=== PATIENT | male | born 1935 | race African-American/Black ===

== ENCOUNTER 2018-11-06 16:58 | Inpatient (IN) | payer OTHER, BC ==
--- NOTE | 2018-11-06 17:06 | EDPHY ---
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 surgery back surgery x2, hemorrhoidectomy x 2 , prostate cancer currently in remission, recent anemia hospitalization, smoldering myeloma - Social History Smoking Status: Never smoked Constitutional: Initial Vital Signs Temperature (C) 36.6 C 11/06/18 17:26 Heart Rate 75 11/06/18 17:26 Respiratory Rate 16 11/06/18 17:26 Blood Pressure 138/79 H 11/06/18 17:26 O2 Sat (%) 97 11/06/18 17:26 O2 Delivery Mode Room Air Allergies/Adverse Reactions: codeine [Codeine] Allergy (Intermediate, Verified 08/16/16 10:07) "delusional" aspirin [From Percodan] Allergy (Verified 08/16/16 10:07) morphine Allergy (Verified 08/16/16 10:07) oxycodone HCl [From Percodan] Allergy (Verified 08/16/16 10:07) oxycodone terephthalate [From Percodan] Allergy (Verified 08/16/16 10:07) Home Medications: Medication Instructions Recorded Acyclovir [Zovirax 200 mg (*)] 200 mg PO BID 06/22/14 Allopurinol [Allopurinol 100 MG 100 mg PO DAILY 06/22/14 (*)] Furosemide [Lasix 40 MG (*)] 40 mg PO DAILY 06/22/14 Herbals/Supplements -Info Only 1 ea PO DAILY 06/22/14 Hydroxychloroquine Sulfate 400 mg PO DAILY 06/22/14 [Plaquenil 200 mg (*)] Lactulose 30 gm PO TID 06/22/14 Latanoprost 1 drops EACHEYE HS 06/22/14 Warfarin Sodium [Coumadin 4MG (*)] 4 mg PO DAILY16 06/22/14 Polyethylene Glycol 3350 [Miralax 17 gm PO DAILY #30 pkt 06/23/14 17 gm (*)] Losartan Potassium 08/16/16 amLODIPine BESYLATE [Amlodipine 5 mg PO DAILY #30 tablet 10/10/16 Besylate] Medical Decision Making - Diagnostics Imaging Results: Imaging Impressions Abdomen/Pelvis CT 11/06/18 17:20 Impression: 1. Mild to moderate dilatation and thickening of the cecum and ascending colon to the level of hepatic flexure with the cecum position and in the left upper abdomen. 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 2. Interstitial fibrotic changes at the lung bases with early honeycomb pattern. Findings discussed with Norris Foster MD at 19:20 hour, 11/06/2018. Imaging: Discussed imaging studies w/ call center agent Radiologist, I viewed and interpreted images myself ED Course/Re-evaluation: CHIEF COMPLAINT: Abdominal pain HISTORY OF PRESENT ILLNESS: The patient is an 83 y/o male with a history of renal failure, prostate cancer, back surgery, and hemorrhoidectomy complaining of abdominal pain onset at 14:30 , 3 hours ago. This morning he felt normal and was able to exercise without difficulty. After eating lunch he developed some abdominal discomfort and had one episode of vomiting. The pain is currently in his upper abdomen and he is not nauseous. No fever, headache, chest pain, urinary or bowel complaints, numbness, paresthesias. REVIEW OF SYSTEMS: A comprehensive 10 system review of systems is otherwise negative aside from elements mentioned in the history of present illness and medical decision making. PHYSICAL EXAM: HR, BP, O2 Sat, RR. Temp noted General Appearance: Alert, well hydrated, appropriate, and non-toxic appearing. Head: Atraumatic without scalp tenderness or obvious injury Eyes: Pupils equal, round, reactive to light and accommodation, EOMI, no trauma , no injection. Ears: Clear bilaterally, no perforation, normal landmarks Nose: Atraumatic, no rhinorrhea, clear. Throat: There is no erythema or exudates, no lesions, normal tonsils, mucus membranes moist. Neck: Supple, 2+ carotid upstroke, nontender, no lymphadenopathy. Respiratory: No retractions, no distress, no wheezes, and no accessory muscle use. Lungs are clear to auscultation bilaterally. Cardiovascular: Regular rate and rhythm, no murmurs, rubs, or gallops. Bilateral carotid, radial, dorsalis pedis, and posterior tibial pulses intact. Good capillary refill all extremities. Gastrointestinal: Left upper quadrant and epigastric tenderness to palpation. Abdomen is soft, non-distended, no masses, no rebound, no guarding, no peritoneal signs. Musculoskeletal: Normal active ROM of all extremities, atraumatic. Neurological: Alert, appropriate, and interactive. The patient has normal DTRs and non-focal cranial nerves, motor, sensory, and cerebellar exam. Skin: No rashes, good turgor, no nodules on palpation. 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 MEDICAL DECISION MAKING: The patient is an 83 y/o male with a history of renal failure, prostate cancer, back surgery, and hemorrhoidectomy presenting with abdominal pain and one episode of vomiting onset at 14:30, 3 hours ago. On exam he has left upper quadrant and epigastric tenderness to palpation. Labs ordered; 1L IV NS administered. 1739: I reviewed patient's laboratory findings; he is anemic and dehydrated. Imaging studies still pending. 1914: I spoke with Dr. 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 1917: I consulted with Dr. Hairston, regarding this patient and his imaging findings. Dr. Hairston will consult on this patient during his admission. 1924: I consulted with the hospitalist service; Dr. Blue accepts admission of this patient. Patient is still in pain; 1mg IV Dilaudid administered. 1954: I consulted with Dr. Hairston who is now in the emergency department. He will talk with the patient and his family regarding possible surgery. Dr. Hairston will take this patient to the OR for the cecal bascule. - Data Points Laboratory Results: Laboratory Results 11/06/18 17:25 11/06/18 17:25 11/06/18 11/06/18 11/06/18 17:42 17:25 17:25 WBC RBC Hgb POC Hgb 7.1 gm/dL L gm/dL (13.7-17.5) Hct POC Hct 21 % L % (40-51) MCV MCH MCHC RDW Plt Count MPV Neut % (Auto) Lymph % (Auto) [place] % (Auto) Eos % (Auto) Baso % (Auto) Nucleat RBC Rel Count Absolute Neuts (auto) Absolute Lymphs (auto) Absolute Monos (auto) Absolute Eos (auto) Absolute Basos (auto) Absolute Nucleated RBC Immature Gran % Immature Gran # PT 13.5 SEC SEC (12.0-15.0) INR 1.01 (0.83-1.16) APTT 35.6 SEC SEC (23.0-38.0) POC Sodium 137 mEq/L mEq/L (135-145) Sodium 135 mEq/L mEq/L (135-145) POC Potassium 3.4 mEq/L mEq/L (3.3-5.0) Potassium 3.6 mEq/L mEq/L (3.5-5.2) POC Chloride 100 mEq/L mEq/L (97-110) Chloride 103 mEq/L mEq/L (97-110) Carbon Dioxide 22 mEq/l mEq/l (22-31) Anion Gap 10 mEq/L mEq/L (6-14) POC BUN 64 mg/dL H mg/dL (7-23) BUN 71 mg/dL H mg/dL (7-23) Creatinine 3.1 mg/dL H mg/dL (0.7-1.3) POC Creatinine 3.5 mg/dL H mg/dL (0.7-1.3) Estimated GFR 19 Glucose 115 mg/dL H mg/dL (70-100) POC Glucose 112 mg/dL H mg/dL (70-100) Calcium 8.8 mg/dL mg/dL (8.5-10.4) Total Bilirubin 0.7 mg/dL mg/dL (0.1-1.4) Conjugated Bilirubin 0.5 mg/dL mg/dL (0.0-0.5) Unconjugated Bilirubin 0.2 mg/dL mg/dL (0.0-1.1) AST 18 IU/L IU/L (17-59) ALT 17 IU/L L IU/L (21-72) Alkaline Phosphatase 62 IU/L IU/L (38-126) Total Protein 6.6 g/dL g/dL (6.3-8.2) Albumin 3.6 g/dL g/dL (3.5-5.0) Lipase 201 IU/L IU/L (23-300) 11/06/18 17:25 WBC 3.73 10^3/uL L 10^3/uL (3.80-9.50) RBC 2.81 10^6/uL L 10^6/uL (4.40-6.38) Hgb 10.4 g/dL L g/dL (13.7-17.5) POC Hgb Hct 29.6 % L % (40.0-51.0) POC Hct MCV 105.3 fL H fL (81.5-99.8) MCH 37.0 pg H pg (27.9-34.1) MCHC 35.1 g/dL g/dL (32.4-36.7) RDW 16.5 % H % (11.5-15.2) Plt Count 164 10^3/uL 10^3/uL (150-400) MPV 10.2 fL fL (8.7-11.7) Neut % (Auto) 66.8 % % (39.3-74.2) Lymph % (Auto) 24.9 % % (15.0-45.0) [place] % (Auto) 6.4 % % (4.5-13.0) Eos % (Auto) 1.1 % % (0.6-7.6) Baso % (Auto) 0.5 % % (0.3-1.7) Nucleat RBC Rel Count 0.5 % H % (0.0-0.2) Absolute Neuts (auto) 2.49 10^3/uL 10^3/uL (1.70-6.50) Absolute Lymphs (auto) 0.93 10^3/uL L 10^3/uL (1.00-3.00) Absolute Monos (auto) 0.24 10^3/uL L 10^3/uL (0.30-0.80) Absolute Eos (auto) 0.04 10^3/uL 10^3/uL (0.03-0.40) Absolute Basos (auto) 0.02 10^3/uL 10^3/uL (0.02-0.10) Absolute Nucleated RBC 0.02 10^3/uL H 10^3/uL (0-0.01) Immature Gran % 0.3 % % (0.0-1.1) Immature Gran # 0.01 10^3/uL 10^3/uL (0.00-0.10) PT INR APTT POC Sodium Sodium POC Potassium Potassium POC Chloride Chloride Carbon Dioxide Anion Gap POC BUN BUN Creatinine POC Creatinine Estimated GFR Glucose POC Glucose Calcium Total Bilirubin Conjugated Bilirubin Unconjugated Bilirubin AST ALT Alkaline Phosphatase Total Protein Albumin Lipase Medications Given: Discontinued Medications Hydromorphone HCl (Dilaudid) 1 mg IVP EDNOW ONE Stop: 11/06/18 19:28 Last Admin: 11/06/18 19:31 Dose: 1 mg Sodium Chloride (Ns) 1,000 mls @ 0 mls/hr IV EDNOW ONE; Wide Open PRN Reason: Protocol Stop: 11/06/18 17:18 Last Admin: 11/06/18 17:44 Dose: 1,000 mls Point of Care Test Results: Chemistry 11/06/18 17:42 POC Sodium 137 mEq/L mEq/L (135-145) POC Potassium 3.4 mEq/L mEq/L (3.3-5.0) POC Chloride 100 mEq/L mEq/L (97-110) POC BUN 64 mg/dL H mg/dL (7-23) POC Creatinine 3.5 mg/dL H mg/dL (0.7-1.3) POC Glucose 112 mg/dL H mg/dL (70-100) ISTAT H&H 11/06/18 17:42 POC Hgb 7.1 gm/dL L gm/dL (13.7-17.5) POC Hct 21 % L % (40-51) Departure - Departure Disposition: To OP Cath/Surgery Clinical Impression: Cecal bascule, Dehydration, Renal insufficiency Condition: Fair Report Scribed for: Norris Foster Report Scribed by: Jesica Rich Date of Report: 11/06/18 Time of Report: 17:07
[2018-11-06] MEDS ORDERED: NS 1,000 ML IV ONE (17:17)
[2018-11-06 17:36] LABS: PLATELET COUNT 164 10^3/uL (150-400)
[2018-11-06 17:45] LABS: INR 1.01 (0.83-1.16); PROTIME(PATIENT) 13.5 SEC (12.0-15.0)
[2018-11-06] MEDS ORDERED: HYDROmorphONE/DILAUDID 2 MG/ML INJ IVP ONE (19:27)
[2018-11-06] MEDS ORDERED: ACETAMINOPHEN 325 MG TAB PO PRN (20:26)
[2018-11-06] MEDS ORDERED: ONDANSETRON 4 MG/2 ML VIAL IVP PRN ×2 (20:26→23:08)
[2018-11-06] MEDS ORDERED: PROMETHAZINE HCL 25 MG/ML INJ IVP PRN ×2 (20:26→23:08)
[2018-11-06] MEDS ORDERED: ONDANSETRON DISINTEGRATING 4 MG TAB PO PRN (20:26)
--- NOTE | 2018-11-06 20:39 | PDCONSULT ---
Neurology Tech Note: Chief complaint: Abdominal pain Consult the request of Dr. Norris Foster emergency room. History of present illness: This is an 83-year-old gentleman with a history of p-ANCA vasculitis, chronic renal insufficiency, prostate cancer, hypertension who presents to the hospital with acute exacerbation of chronic abdominal pain. Patient has had a smoldering history of failure to thrive not eating very much over the last several months. He did have a bowel movement this morning. Denies any changes in his overall bowel habits until today. He exercises on a regular basis but has limited walking. Denies exertional dyspnea. 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 Home meds: Acyclovir [Zovirax 200 mg (*)] 200 mg PO BID 06/22/14 [Last Taken 06/22/14] Allopurinol [Allopurinol 100 MG (*)] 100 mg PO DAILY 06/22/14 [Last Taken ] Furosemide [Lasix 40 MG (*)] 40 mg PO DAILY 06/22/14 [Last Taken 06/22/14] Herbals/Supplements -Info Only 1 ea PO DAILY 06/22/14 [Last Taken 06/22/14] Hydroxychloroquine Sulfate [Plaquenil 200 mg (*)] 400 mg PO DAILY 06/22/14 [ Last Taken 06/22/14] Lactulose 30 gm PO TID 06/22/14 [Last Taken 06/22/14] Latanoprost 1 drops EACHEYE HS 06/22/14 [Last Taken 06/21/14] Warfarin Sodium [Coumadin 4MG (*)] 4 mg PO DAILY16 06/22/14 [Last Taken 06/21/14 ] Losartan Potassium 08/16/16 [Last Taken Unknown] Allergy/AdvReac Type Severity Reaction Status Date / Time codeine [Codeine] Allergy Intermediate "delusional Verified 08/16/16 10:07 " aspirin [From Percodan] Allergy Verified 08/16/16 10:07 morphine Allergy Verified 08/16/16 10:07 oxycodone HCl [From Percodan] Allergy Verified 08/16/16 10:07 oxycodone terephthalate Allergy Verified 08/16/16 10:07 [From Percodan] Temp Pulse Resp BP Pulse Ox 36.8 C 57 L 18 131/73 H 97 11/06/18 18:00 11/06/18 20:46 11/06/18 20:46 11/06/18 20:46 11/06/18 20:46 O2 (L/minute) 1 Alert oriented to person place and time Anicteric Oropharynx moist without lesions No JVD Regular rate and rhythm Clear to auscultation bilaterally. Right Port-A-Cath accessed site is clean dry intact Abdomen softly distended tender right upper quadrant with some tympany. 2+ over 2+ radial and popliteal pulses. Bilateral 2+ posterior tibial. 2+ dorsalis pedis left, 1+ dorsalis pedis right No skin rashes No adenopathy Normal affect appropriate behavior CT scan personally reviewed with the patient consistent with cecal bascule/ cecal volvulus 11/06/18 17:25 11/06/18 17:25 Total Bilirubin 0.7 mg/dL (0.1-1.4) 11/06/18 17:25 Conjugated Bilirubin 0.5 mg/dL (0.0-0.5) 11/06/18 17:25 Unconjugated Bilirubin 0.2 mg/dL (0.0-1.1) 11/06/18 17:25 AST 18 IU/L (17-59) 11/06/18 17:25 ALT 17 IU/L (21-72) L 11/06/18 17:25 Imaging Impressions Abdomen/Pelvis CT 11/06/18 17:20 Impression: 1. Mild to moderate dilatation and thickening of the cecum and ascending colon to the level of hepatic flexure with the cecum position and in the left upper abdomen. 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 2. Interstitial fibrotic changes at the lung bases with early honeycomb pattern. Findings discussed with Norris Foster MD at 19:20 hour, 11/06/2018. 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 The risks benefits and alternatives to surgery have been outlined with the patient in his life partner. The risks include bleeding, infection, anastomotic breakdown and need for further surgery. There increased risk due to his debility renal failure in use of immunosuppression on a chronic basis. He has been seen by Dr. Shane Blue from Medicine who has boilermaker's assistant in taking care of his chronic medical problems with EKG prior to surgery is congruous with previous EKG 4 years ago. Preoperative Ancef and Flagyl will be given. All questions were addressed. Anticipated 3-5 day hospital stay
[2018-11-06] MEDS ORDERED: BUPIVACAINE 0.5% 30 ML SDV ONE (20:56)
[2018-11-06] MEDS ORDERED: BACITRACIN 50,000 UNITS/10 ML SYR IRR ONE (20:57)
[2018-11-06] MEDS ORDERED: POLYMYXIN B SULFATE 500,000 UNIT/10 ML SYR IRR ONE (20:57)
--- NOTE | 2018-11-06 21:24 | GHP ---
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 intake. He has not had fever or chills. Pain got worse at about 2:30 in the afternoon, developed some abdominal discomfort after lunch. He was able to exercise moderately with some weights this morning without difficulty. He had an episode of vomiting. He describes the pain as in his upper abdomen. No fever, chills. I have seen the patient in conjunction with Dr. Con Hairston of General Surgery. REVIEW OF SYSTEMS: Complete 10-point review of systems conducted, negative except as noted in the HPI. PAST MEDICAL HISTORY: 1. [id number] pauci-immune RPGN. He was on Cytoxan therapy for a while , and now he takes azathioprine. He is followed by Dr. Derrek Aguayo, [facility]. Baseline creatinine is 3. 2. Anemia of chronic kidney disease. 3. Smoldering myeloma. 4. Lower extremity DVT in May 2014. No longer on warfarin. 5. Hypertension. 6. History of prostate cancer. 7. Rheumatoid arthritis, on prednisone and Plaquenil. 8. History of right subclavian port. SOCIAL HISTORY: He has had a partner for 16 years. No alcohol, tobacco. 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 FAMILY HISTORY: Notable for hypertension and multiple myeloma. ALLERGIES: Codeine, aspirin, morphine, oxycodone. HOME MEDICATION LIST: Pending at this time. Previous list includes acyclovir, allopurinol, amlodipine, furosemide, hydroxychloroquine, lactulose, latanoprost , losartan, polyethylene glycol. Azathioprine in now part of his medication list as well. PHYSICAL EXAM: VITAL SIGNS: Temp 36.8, blood pressure 133/79, pulse 75, breathing 18 times a minute, 97% on room air. GENERAL: No acute distress. HEENT: Sclerae anicteric. Oropharynx clear. Mucous membranes moist. NECK: Supple. No lymphadenopathy or JVD. LUNGS: Clear to auscultation bilaterally. HEART: S1, S2, without murmurs. ABDOMEN: Soft. Bowel sounds are hypoactive to absent. It is mildly distended and tympanic to percussion. LOWER EXTREMITIES: Without edema. Calves nontender. SKIN: Without rash. NEUROLOGIC: Exam is nonfocal. LABS: White count 3.7, hemoglobin 10, hematocrit 29.6, platelets are 164,000. Coags are normal. Sodium 135, potassium 3.6, chloride 103, bicarb 22, BUN 70, with creatinine 3.1, glucose 115. LFTs are normal. CT of the abdomen, images reviewed and interpreted by me show likely cecal volvulus. EKG interpreted by me shows sinus at 74 with borderline left axis deviation, normal intervals, no ST or T-wave changes, unchanged from an EKG in May 2014. I discussed the case with Dr. Norris Foster as well as Dr. Con Hairston. ASSESSMENT AND PLAN: 83-year-old gentleman with volvulus. 1. Preoperative cardiac evaluation: The patient has multiple risk factors for cardiac disease including hypertension and renal disease. He is able to possibly achieve greater than 4 METs. This is urgent surgery without active cardiac condition. He has no history of exertional symptoms, and his EKG is unchanged from a previous baseline. Therefore, he may proceed to surgery without further workup or intervention. We discussed the patient has intermediate risk of cardiac complications. Notably, he had essentially normal echo here in June 2014. 2. Volvulus, to the operating room with Dr. Con Hairston this evening. 3. Pauci-immune glomerulonephritis: I will continue his azathioprine when his medication has been reconciled. 4. Chronic kidney disease: Maintain euvolemia and not restart diuretics until the patient is taking adequate p.o. 5. Prophylaxis: He is high risk given his previous history of deep venous thrombosis. Would start subcu heparin [id number] prophylaxis when cleared from a renal standpoint. DISPOSITION: Inpatient status. PAIN: Will do IV Dilaudid for now. /[id number]/MODL MTDD
[2018-11-06] MEDS ORDERED: PROPOFOL 200 MG/20 ML VIAL ONE (21:33)
[2018-11-06] MEDS ORDERED: fentaNYL 100 MCG/2 ML INJ ONE (21:33)
[2018-11-06] MEDS ORDERED: CISATRACURIUM BESYLATE 20 MG/10 ML VIAL IV ONE (21:35)
[2018-11-06] MEDS ORDERED: SUCCINYLCHOLINE CHLORIDE 200 MG/10 ML SYR IVP ONE (21:37)
[2018-11-06] MEDS ORDERED: DEXAMETHASONE 4 MG/ML VIAL ONE (21:37)
[2018-11-06] MEDS ORDERED: ONDANSETRON 4 MG/2 ML VIAL ONE (21:37)
[2018-11-06] MEDS ORDERED: PHENYLEPHRINE HCL 100 MCG/ML SYR ONE (21:53)
--- NOTE | 2018-11-06 22:00 | PDANEPAE ---
ANE Past Medical History - Cardiovascular History Hx Hypertension: Yes Hx Arrhythmias: Yes Hx Coronary Artery / Peripheral Vascular Disease: No Hx CHF / Valvular Disease: No - Pulmonary History Hx COPD: No Hx Asthma/Reactive Airway Disease: No Hx Oxygen in Use at Home: No Hx Sleep Apnea: No - Endocrine History Hx Diabetes: No Obesity: no - Chronic Pain History Chronic Pain: Yes ANE Review of Systems Review of Systems: ANE Patient History - Allergies Allergies/Adverse Reactions: codeine [Codeine] Allergy (Intermediate, Verified 08/16/16 10:07) "delusional" aspirin [From Percodan] Allergy (Verified 08/16/16 10:07) morphine Allergy (Verified 08/16/16 10:07) oxycodone HCl [From Percodan] Allergy (Verified 08/16/16 10:07) oxycodone terephthalate [From Percodan] Allergy (Verified 08/16/16 10:07) - Home Medications Home medications: home medication list seen and reviewed Home Medications: Acyclovir [Zovirax 200 mg (*)] 200 mg PO BID 06/22/14 [Last Taken 06/22/14] Allopurinol [Allopurinol 100 MG (*)] 100 mg PO DAILY 06/22/14 [Last Taken ] Furosemide [Lasix 40 MG (*)] 40 mg PO DAILY 06/22/14 [Last Taken 06/22/14] Herbals/Supplements -Info Only 1 ea PO DAILY 06/22/14 [Last Taken 06/22/14] Hydroxychloroquine Sulfate [Plaquenil 200 mg (*)] 400 mg PO DAILY 06/22/14 [ Last Taken 06/22/14] Lactulose 30 gm PO TID 06/22/14 [Last Taken 06/22/14] Latanoprost 1 drops EACHEYE HS 06/22/14 [Last Taken 06/21/14] Warfarin Sodium [Coumadin 4MG (*)] 4 mg PO DAILY16 06/22/14 [Last Taken 06/21/14 ] Losartan Potassium 08/16/16 [Last Taken Unknown] - NPO status NPO Since - Liquids (Date): 11/06/18 NPO Since - Liquids (Time): 14:30 NPO Since - Solids (Date): 11/06/18 NPO Since - Solids (Time): 12:30 - Anes Hx Anes Hx: no prior problems - Smoking Hx Smoking Status: Never smoked ANE Labs/Vital Signs - Labs Result Diagrams: 11/06/18 17:25 11/06/18 17:25 - Vital Signs Blood Pressure: 121/69 Heart Rate: 62 Respiratory Rate: 18 O2 Sat (%): 97 Height: 172.72 cm Weight: 69.853 kg ANE Physical Exam - Airway Neck exam: FROM Mallampati Score: Class 3 Mouth exam: normal dental/mouth exam - Pulmonary Pulmonary: no respiratory distress, no rales or rhonchi, clear to auscultation - Cardiovascular Cardiovascular: regular rate and rhythym - ASA Status ASA Status: III, E ANE Anesthesia Plan Anesthesia Plan: general endotracheal anesthesia
[2018-11-06] MEDS ORDERED: LIDOCAINE 2% 5 ML SDV ONE (22:34)
[2018-11-06] MEDS ORDERED: NEOSTIGMINE METHYLSULFATE 5 MG/5 ML SYR ONE (23:06)
[2018-11-06] MEDS ORDERED: GLYCOPYRROLATE 0.2 MG/1 ML VIAL ONE (23:06)
[2018-11-06] MEDS ORDERED: LR 500 ML IV PRN (23:08)
[2018-11-06] MEDS ORDERED: NALOXONE HCL 0.4 MG/ML INJ IVP PRN (23:08)
[2018-11-06] MEDS ORDERED: HYDROmorphONE/DILAUDID 2 MG/ML INJ IVP PRN (23:08)
[2018-11-06] MEDS ORDERED: fentaNYL 100 MCG/2 ML INJ IVP PRN (23:08)
--- NOTE | 2018-11-06 23:29 | POSTOPPROG ---
Post Op Note Date of Operation: 11/06/18 Surgeon: Con Hairston Reliability Technician: None Anesthesiologist: Dr. 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
--- NOTE | 2018-11-06 23:34 | POSTANESTH ---
Post Anesthetic Evaluation Cardiovascular Status: Normal, Stable, Similar to Pre-Op Cond Respiratory Status: Normal, Stable, Similar to Pre-op Cond. Level of Consciousness/Mental Status: Can Participate in Eval, Moderately Sleepy Pain Control: Adequate, Prn Tx Ordered Nausea/Vomiting Control: Adequate, Prn Tx Ordered Complications Possibly Related to Anesthesia: None Noted
--- NOTE | 2018-11-06 23:38 | SUROPNOTE ---
[facility] Operative Report - Surgery Date of surgery: 11/06/2018 Indications for surgery: This is an 83-year-old patient presenting with a large bowel obstruction and cecal bascule/volvulus on CT scan. 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 Paz general endotracheal anesthesia Specimen right colon to permanent pathology EBL 100 mL Fluids given 750 cc crystalloid Procedure: The patient is brought to the operative room and placed in a spine position. General endotracheal anesthesia is established. Time-out procedures performed according institutional standards. The abdomen was approached through a midline laparotomy and immediately the right colon is identified pointing towards the xiphoid. It is grossly distended. The abdomen is inspected there is no sign of other pathology and the right colon was addressed as if taking care of a cecal volvulus. The peritoneal reflection is mobilized using electrocautery the ureters identified kept out of field dissection the duodenum is also similarly identified and kept out of field of dissection at the hepatic flexure a hard mass is palpated and multiple nodules coursing along the right branch of the middle colic vessel are noted. In light of this a formal right colon resection to the include the right branch of the middle colic vessel all the way down to the superior mesenteric artery was decided on. The terminal ileum was divided and the mesentery is controlled with Bovie monopolar electrocautery, Harmonic energy and for the large vessels clamp cut tie technique with suture ligature at the base. The right branch to of the middle colic vessels the last taken and multiple lymph nodes along the course of this vessel are taken off and passed off as specimens also. After completing the dissection there are no palpable lymph nodes in the field and the areas hemostatic. The gallbladder is slightly distended but has no stones. The liver and spleen are without signs of metastatic disease. The remainder of the abdomen is inspected. No other pathology is noted. Needle instrument sponge counts are then verified to be correct. A Vi-Drape was then placed into the field and the specimen was resected and passed off. A [id number] functional and end anastomosis are created from the anti mesenteric surface of the small bowel to the tinea of the colon. 75 cm staple line is created and then inspected for bleeding. The enterotomy is closed using a LAURA stapler. Needle instrument sponge counts were verified to be correct and clean closure is then performed according to institutional standards. The fascia was reapproximated using 0 PDS the wound is irrigated with saline and formally closed in layered fashion using 3 0 Polysorb and 4 Monocryl. Local anesthetic is placed as a tap block and into the skin and subcutaneous tissues of the incision line. The patient is then awakened extubated taken to recovery room in stable condition no immediate complications.
[2018-11-07] MEDS: HYDROmorphONE/DILAUDID 1 MG/ML INJ IVP PRN ×8 (01:11→22:17)
[2018-11-07 05:36] LABS: PLATELET COUNT 161 10^3/uL (150-400)
--- NOTE | 2018-11-07 08:04 | SOAPPROG ---
SOAP Progress Note Assessment/Plan: Assessment/Plan: Postoperative day 1 status post right colectomy for obstructing right colon mass with adenopathy. The patient had some pain overnight which was controlled with Dilaudid. Laboratory studies this morning has a baseline creatinine of 2.9 his hemoglobin is down to 8.4 which is more consistent with his normal anemia. Alert oriented no distress Lungs clear bilaterally abdomen soft flat incision clean dry and intact Extremities without edema Continue clear liquids. Pain control with Dilaudid IV. Oral Dilaudid would be a good transition for the patient given his other allergies. No nonsteroidal anti-inflammatories due to chronic renal insufficiency. Anticipate 5 day hospital stay postoperatively. Appreciate Medicine input and social science research assistant with his chronic medical problems 11/07/18 08:02 Objective: Vital Signs Temp Pulse Resp BP Pulse Ox 36.4 C 87 18 132/68 H 98 11/07/18 07:41 11/07/18 07:41 11/07/18 07:41 11/07/18 07:41 11/07/18 07:41 Laboratory Results 11/07/18 05:20 11/07/18 05:20 11/06/18 11/07/18 11/08/18 05:59 05:59 05:59 Intake Total 1900 Output Total 100 Balance 1800 PT 13.5 SEC (12.0-15.0) 11/06/18 17:25 INR 1.01 (0.83-1.16) 11/06/18 17:25 ICD10 Worksheet Patient Problems: Problems Problem Status Onset Cecal bascule Acute Dehydration Acute Renal insufficiency Acute Constipation Acute Failure to thrive in adult Acute
--- NOTE | 2018-11-07 11:06 | ASMTCMCOM ---
CM Note CM Note Notes: Pts case discussed with SUDHEER Hung. Pt is a 83 y/o man admitted for abdominal pain. Surgery has been consulted. Pt lives at [facility] with his life partner that is a retired SALES ACCOUNT REPRESENTATIVE. 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 Therapies have been ordered and awaiting recommendations. Needs are TBD at this time. CM to follow. Plan: TBD Date Signed: 11/07/2018 11:05 AM Electronically Signed By:PORFIRIO Lincoln
[2018-11-07] MEDS ORDERED: HYDROmorphONE/DILAUDID 1 MG/ML INJ IVP ONE (13:41)
--- NOTE | 2018-11-07 15:27 | HOSPPROG ---
Hospitalist Progress Note Assessment/Plan: Obstruction- I discussed his case with generally surgery. Per his report patient did not have a volvulus but rather had an obstructing mass, that is likely to be cancer. Patient tolerating po at this point, but still having pain -post operative care per surgery -adat -at some point will consult oncology to discuss treatment but per patients MDPOA and surgery would like to wait until pathology finalized. 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 At or below baseline currently. Appears to take prednisone at home. Will need to confirm dose with patient and then will restart as able Anemia- has likely blood loss anemia in the setting of anemia of chronic disease. Monitor H/H. HTN- on norvasc at home. mildly hypotensive after surgery. Restart as able. PPX- SCDs, Heparin per surgery Fluids- tolerating po Lytes- WNL Nutrition- Adat Cor- Full Dispo- inpatient for obstructing mass. Subjective: patient having upper abdominal pain. medications are effective. No other complaint.s Objective: Vital Signs Temp Pulse Resp BP Pulse Ox 36.4 C 74 18 114/60 98 11/07/18 11:13 11/07/18 11:13 11/07/18 11:13 11/07/18 11:13 11/07/18 11:13 Laboratory Results 11/07/18 05:20 11/07/18 05:20 11/06/18 11/07/18 11/08/18 05:59 05:59 05:59 Intake Total 1900 Output Total 100 950 Balance 1800 -950 PT 13.5 SEC (12.0-15.0) 11/06/18 17:25 INR 1.01 (0.83-1.16) 11/06/18 17:25 - Physical Exam Constitutional: no apparent distress, appears nourished, not in pain Eyes: PERRL, anicteric sclera, EOMI Ears, Nose, Mouth, Throat: moist mucous membranes, hearing normal, ears appear normal, no oral mucosal ulcers Cardiovascular: regular rate and rhythym, no murmur, rub, or gallop Respiratory: no respiratory distress, no rales or rhonchi, clear to auscultation Gastrointestinal: tenderness, other (hypoactive BS. mildly tender to palpation diffusely. ) Genitourinary: no bladder fullness, no bladder tenderness, no renal bruits Skin: no rashes or abrasions, no fluctuance, no induration Musculoskeletal: full muscle strength, no muscle tenderness, normal joint ROM Neurologic: AAOx3, sensation intact bilaterally Psychiatric: interacting appropriately, not anxious, not encephalopathic, thought process linear Lymph, Heme, Immunologic: no cervical LAD, no supraclavicular LAD ICD10 Worksheet Patient Problems: Problems Problem Status Onset Cecal bascule Acute Dehydration Acute Renal insufficiency Acute Constipation Acute Failure to thrive in adult Acute
[2018-11-08] MEDS: HYDROmorphONE/DILAUDID 1 MG/ML INJ IVP PRN ×7 (00:51→19:55)
[2018-11-08 06:13] LABS: PLATELET COUNT 135 10^3/uL (150-400)
--- NOTE | 2018-11-08 09:27 | SOAPPROG ---
<HeikecarmelZoila - Last Filed: 11/08/18 12:54> SOAP Progress Note Assessment/Plan: Assessment/Plan: Right colectomy POD#2 for hepatic flexure mass. Pathology pending. Advance diet as tolerated to renal diet. Creatinine elevated to 3.2- history of chronic kidney disease. Hgb 7.1 today- history of anemia, patient declined PRBC transfusion. Add IV fluids today. Ryan catheter insertion today for urinary retention. Patient seen and evaluated by Dr. Hairston. 11/08/18 12:57 Subjective: S/p right colectomy with ileocolonic anastomosis for obstructing hepatic flexure mass. POD #2. Overall doing well. Pain well managed. Tolerating clear diet without nausea or emesis. Has not urinated or had BM since operation. He is having flatus. Ambulating in room. No new concerns. Objective: Vital Signs Temp Pulse Resp BP Pulse Ox 36.9 C 68 16 121/62 H 97 11/08/18 07:39 11/08/18 07:39 11/08/18 07:39 11/08/18 07:39 11/08/18 07:39 Laboratory Results 11/08/18 05:50 11/08/18 05:50 11/07/18 11/08/18 11/09/18 05:59 05:59 05:59 Intake Total 1900 1280 Output Total 100 1575 Balance 1800 -295 PT 13.5 SEC (12.0-15.0) 11/06/18 17:25 INR 1.01 (0.83-1.16) 11/06/18 17:25 Physical Exam: Gen: A&O x3, appears comfortable, afebrile HEENT: anicteric Skin: normal Heart: regular rate Abdomen: soft, distended, appropriate incisional tenderness. Midline incision without erythema or drainage. No rebound or guarding. Extremities: Mild bilateral foot edema ICD10 Worksheet Patient Problems: Problems Problem Status Onset Cecal bascule Acute Dehydration Acute Renal insufficiency Acute Constipation Acute Failure to thrive in adult Acute <Con Hairston - Last Filed: 11/08/18 13:14> SOAP Progress Note Assessment/Plan: Assessment/Plan: Agree with above. Pt wishes to hold on transfusion for now. Not completely opposed concerned due to epo injections I&Os need better monitoring. start NS and place ryan start Lovenox per protocol Adv to low res renal 11/08/18 13:11 Objective: Vital Signs Temp Pulse Resp BP Pulse Ox 36.8 C 75 16 150/77 H 98 11/08/18 11:20 11/08/18 11:20 11/08/18 11:20 11/08/18 11:20 11/08/18 11:20 Laboratory Results 11/08/18 05:50 11/08/18 05:50 11/07/18 11/08/18 11/09/18 05:59 05:59 05:59 Intake Total 1900 1280 350 Output Total 100 1575 100 Balance 1800 -295 250 PT 13.5 SEC (12.0-15.0) 11/06/18 17:25 INR 1.01 (0.83-1.16) 11/06/18 17:25
--- NOTE | 2018-11-08 10:56 | PDMN ---
Medical Necessity [place] [facility] [place] Surgery: Colectomy, Partial, with or without Ostomy: 83 yo presents w/ bowel obstruction, s/p R hemicolectomy, MC IP Only
--- NOTE | 2018-11-08 11:42 | HOSPPROG ---
Hospitalist Progress Note Assessment/Plan: Obstruction- I discussed his case with generally surgery. Per his report patient did not have a volvulus but rather had an obstructing mass, that is likely to be cancer. Patient tolerating po at this point, but still having pain. -post operative care per surgery -adat -at some point will consult oncology to discuss treatment but per patients MDPOA and surgery would like to wait until pathology finalized. 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 At or below baseline currently. Appears to take prednisone at home. Will need to confirm dose with patient and then will restart as able. I discussed case with his surgeon and they are okay with us restarting his home prednisone and azothioprine. Slight creatinine bump overnight, likely due to poor po intake. Multiple Myeloma- takes prednisone and azothioprine for this. Resume. Anemia- H/H dropped overnight to 7 from 06/30. No BM since surgery. Likely blood loss exacerbated by ACD. I doubt he will rebound. I disc HTN- on norvasc at home. mildly hypotensive after surgery. Restart as able. Urinary retention- not able to void without catheter now since before surgery. Chris placed today. likely post op retention, if persists start flomax 0.4mg PPX- SCDs, Heparin per surgery Fluids- tolerating po Lytes- WNL Nutrition- Adat Cor- Full Dispo- inpatient for obstructing mass, anemia, CKD, urinary retention Objective: Vital Signs Temp Pulse Resp BP Pulse Ox 36.8 C 75 16 150/77 H 98 11/08/18 11:20 11/08/18 11:20 11/08/18 11:20 11/08/18 11:20 11/08/18 11:20 Laboratory Results 11/08/18 05:50 11/08/18 05:50 11/07/18 11/08/18 11/09/18 05:59 05:59 05:59 Intake Total 1900 1280 350 Output Total 100 1575 Balance 1800 -295 350 PT 13.5 SEC (12.0-15.0) 11/06/18 17:25 INR 1.01 (0.83-1.16) 11/06/18 17:25 - Physical Exam Constitutional: no apparent distress, appears nourished, not in pain Eyes: PERRL, anicteric sclera, EOMI Ears, Nose, Mouth, Throat: moist mucous membranes, hearing normal, ears appear normal, no oral mucosal ulcers Cardiovascular: regular rate and rhythym, no murmur, rub, or gallop Respiratory: no respiratory distress, no rales or rhonchi, clear to auscultation Gastrointestinal: normoactive bowel sounds, soft, non-tender abdomen, no palpable masses Genitourinary: no bladder fullness, no bladder tenderness, no renal bruits Skin: no rashes or abrasions, no fluctuance, no induration Musculoskeletal: full muscle strength, no muscle tenderness, normal joint ROM Neurologic: AAOx3, sensation intact bilaterally Psychiatric: interacting appropriately, not anxious, not encephalopathic, thought process linear Lymph, Heme, Immunologic: no cervical LAD, no supraclavicular LAD ICD10 Worksheet Patient Problems: Problems Problem Status Onset Cecal bascule Acute Dehydration Acute Renal insufficiency Acute Constipation Acute Failure to thrive in adult Acute
--- NOTE | 2018-11-08 11:47 | ASMTCMCOM ---
CM Note CM Note Notes: Spoke with pt and partner Eilza in the room. They live at [facility]. Pt was admitted for abdominal pain and had a colon resection of mass which is likely cancer. PT recommending HHC and OT recommending HHC v SNF. [facility] has accepted. Pt and partner agreeable to [facility] and understand that if they feel they need more support, the SNF at may also be a possibility pending surgeon recommendation. [facility] PT/OT Date Signed: 11/08/2018 11:46 AM Electronically Signed By:Ember Joyner
[2018-11-08] MEDS ORDERED: ENOXAPARIN 30 MG/0.3 ML SYR SC SCH (13:15)
[2018-11-08] MEDS: predniSONE 10 MG TAB PO SCH (15:09)
[2018-11-08] MEDS: HEPARIN 5,000 UNIT/0.5 ML INJ SC SCH ×2 (15:49→20:41)
[2018-11-08] MEDS: azaTHIOprine 50 MG TAB PO SCH (19:54)
[2018-11-08] MEDS: CALCIUM CARBONATE 500 MG TAB PO SCH (19:54)
[2018-11-08] MEDS: CHOLECALCIFEROL VIT D3 2,000 UNITS TAB/CAP PO SCH (19:55)
[2018-11-08] MEDS: NS 1,000 ML IV SCH (22:36)
[2018-11-08] MEDS: LATANOPROST 0.005% 2.5 ML OPHT DROPS EACHEYE SCH (22:41)
[2018-11-09] MEDS: HEPARIN 5,000 UNIT/0.5 ML INJ SC SCH ×3 (05:25→21:41)
[2018-11-09 05:40] LABS: PLATELET COUNT 116 10^3/uL (150-400)
[2018-11-09] MEDS: azaTHIOprine 50 MG TAB PO SCH ×2 (08:46→21:39)
[2018-11-09] MEDS ORDERED: predniSONE 5 MG TAB PO SCH (09:00)
[2018-11-09] MEDS: NS 1,000 ML IV SCH (09:40)
--- NOTE | 2018-11-09 10:45 | CPEKG ---
Test Reason : OPEN Blood Pressure : / mmHG Vent. Rate : 074 BPM Atrial Rate : 074 BPM P-R Int : 187 ms QRS Dur : 095 ms QT Int : 404 ms P-R-T Axes : 059 -38 032 degrees QTc Int : 449 ms Sinus rhythm Multiform ventricular premature complexes Inferior infarct, old Confirmed by Barb Cardona ([id number]) on 11/09/2018 10:44:07 AM Referred By: Confirmed By:Barb Cardona
--- NOTE | 2018-11-09 12:59 | HOSPPROG ---
Hospitalist Progress Note Assessment/Plan: Obstruction- I discussed his case with generally surgery. Per his report patient did not have a volvulus but rather had an obstructing mass, that is likely to be cancer. Patient tolerating po at this point, but still having pain. Case discussed with surgery today and still awaiting pathology. -post operative care per surgery -advanced to renal diet -at some point will consult oncology to discuss treatment but per patients MDPOA and surgery would like to wait until pathology finalized. 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 At or below baseline currently. Appears to take prednisone at home. Restarted home azothioprine and prednisone Multiple Myeloma- takes prednisone and azothioprine for this. Resume. Anemia- H/H dropped overnight again to 04/25. Patient amenable to transfusion today. Will give 2 units. repeat H/H in am. HTN- on norvasc at home. mildly hypotensive after surgery. Restart as able. Urinary retention- not able to void without catheter now since before surgery. Chris placed. likely post op retention, if persists start flomax 0.4mg. consider voiding trial in next day. PPX- SCDs, Heparin per surgery Fluids- tolerating po Lytes- WNL Nutrition- Adat Cor- Full Dispo- inpatient for obstructing mass, anemia, CKD, urinary retention Subjective: patient continues to improve. Walking in halls, some shortness of breath Objective: Vital Signs Temp Pulse Resp BP Pulse Ox 37.0 C 81 16 138/77 H 91 L 11/09/18 12:44 11/09/18 12:44 11/09/18 12:44 11/09/18 12:44 11/09/18 12:44 Laboratory Results 11/09/18 05:25 11/09/18 05:25 11/08/18 11/09/18 11/10/18 05:59 05:59 05:59 Intake Total 1280 1317 Output Total 1575 1400 Balance -295 -83 PT 13.5 SEC (12.0-15.0) 11/06/18 17:25 INR 1.01 (0.83-1.16) 11/06/18 17:25 - Physical Exam Constitutional: no apparent distress, appears nourished, not in pain Eyes: PERRL, anicteric sclera, EOMI Ears, Nose, Mouth, Throat: moist mucous membranes, hearing normal, ears appear normal, no oral mucosal ulcers Cardiovascular: regular rate and rhythym, no murmur, rub, or gallop Respiratory: no respiratory distress, no rales or rhonchi, clear to auscultation Gastrointestinal: tenderness, other (hypoactive bowel sounds. ) Genitourinary: no bladder fullness, no bladder tenderness, no renal bruits Skin: no rashes or abrasions, no fluctuance, no induration Musculoskeletal: full muscle strength, no muscle tenderness, normal joint ROM Neurologic: AAOx3, sensation intact bilaterally Psychiatric: interacting appropriately, not anxious, not encephalopathic, thought process linear Lymph, Heme, Immunologic: no cervical LAD, no supraclavicular LAD ICD10 Worksheet Patient Problems: Problems Problem Status Onset Cecal bascule Acute Dehydration Acute Renal insufficiency Acute Constipation Acute Failure to thrive in adult Acute
--- NOTE | 2018-11-09 15:20 | SOAPPROG ---
<Zoila Moncada - Last Filed: 11/09/18 15:07> SOAP Progress Note Assessment/Plan: Assessment/Plan: Right colectomy POD#3 for hepatic flexure mass. Pathology pending. Discussed concern for colon cancer, but awaiting definitive diagnosis. Advance diet as tolerated to renal diet- tolerating well thus far. Creatinine down to 2.8 compared to yesterday. Hgb decreased to 6.5- likely dilutional as compared to yesterday, PRBC transfusion today. Will slowly taper IV fluids. May remove ryan catheter. Patient seen and evaluated by Dr. Hairston. 11/09/18 15:19 Subjective: No overnight concerns. Continues to have flatus. No BM. Pain well controlled. States he would have been due for his EPO injection today. Energy is slowly improving. No nausea or vomiting. Has been tolerating regular food well, but has little appetite. Objective: Vital Signs Temp Pulse Resp BP Pulse Ox 37.0 C 81 16 138/77 H 91 L 11/09/18 12:44 11/09/18 12:44 11/09/18 12:44 11/09/18 12:44 11/09/18 12:44 Laboratory Results 11/09/18 05:25 11/09/18 05:25 11/08/18 11/09/18 11/10/18 05:59 05:59 05:59 Intake Total 1280 1317 Output Total 1575 1400 Balance -295 -83 PT 13.5 SEC (12.0-15.0) 11/06/18 17:25 INR 1.01 (0.83-1.16) 11/06/18 17:25 Physical Exam: Gen: A&O x3, appears comfortable, afebrile HEENT: anicteric Skin: normal CV: regular rate Abdomen: soft, distended, mild low abdominal tenderness and incisional tenderness. No rebound or guarding. Incisions clean without erythema Extremities: mild bilateral foot edema ICD10 Worksheet Patient Problems: Problems Problem Status Onset Cecal bascule Acute Dehydration Acute Renal insufficiency Acute Constipation Acute Failure to thrive in adult Acute <Con Hairston - Last Filed: 11/09/18 16:33> SOAP Progress Note Assessment/Plan: Assessment/Plan: agree with above currently being transfused pRBC d/c ryan concerns for cancer d/w patient await final path 11/09/18 16:32 Objective: Vital Signs Temp Pulse Resp BP Pulse Ox 37.1 C 83 18 151/84 H 94 11/09/18 16:00 11/09/18 16:00 11/09/18 16:00 11/09/18 16:00 11/09/18 16:00 Laboratory Results 11/09/18 05:25 11/09/18 05:25 11/08/18 11/09/18 11/10/18 05:59 05:59 05:59 Intake Total 1280 1317 Output Total 1575 1400 1050 Balance - PT 13.5 SEC (12.0-15.0) 11/06/18 17:25 INR 1.01 (0.83-1.16) 11/06/18 17:25
[2018-11-09] MEDS: hydrALAZINE 20 MG/ML VIAL IVP PRN ×2 (17:37→19:30)
[2018-11-09] MEDS: HYDROmorphONE/DILAUDID 1 MG/ML INJ IVP PRN (19:31)
[2018-11-09] MEDS: CALCIUM CARBONATE 500 MG TAB PO SCH (21:39)
[2018-11-09] MEDS: CHOLECALCIFEROL VIT D3 2,000 UNITS TAB/CAP PO SCH (21:39)
[2018-11-09] MEDS: DORZOLAMIDE 2% OPTH DROPS EACHEYE SCH (21:40)
[2018-11-09] MEDS: LATANOPROST 0.005% 2.5 ML OPHT DROPS EACHEYE SCH (21:40)
[2018-11-10] MEDS: HYDROmorphONE/DILAUDID 1 MG/ML INJ IVP PRN (04:15)
[2018-11-10] MEDS: HEPARIN 5,000 UNIT/0.5 ML INJ SC SCH ×3 (04:16→21:56)
--- NOTE | 2018-11-10 08:48 | SOAPPROG ---
<HeikecarmelZoila - Last Filed: 11/10/18 08:45> SOAP Progress Note Assessment/Plan: Assessment/Plan: Right colectomy POD#4 for hepatic flexure mass. Pathology pending. Repeat CBC and CMP today. D/c IV fluids. Continue with regular diet as tolerated. Will discuss patient's case with his daughter when she arrives. Patient seen and evaluated by Dr. Hairston. 11/10/18 08:49 Subjective: Doing well. Chris catheter removed last night and has been urinating. Had small BM overnight. Having flatus. Pain well managed. Tolerated fluids and regular diet well. No nausea. His daughter coming in town today. Patient states his partner has home health arranged for after discharge. Objective: Vital Signs Temp Pulse Resp BP Pulse Ox 36.6 C 71 20 133/82 H 92 11/10/18 08:00 11/10/18 08:00 11/10/18 08:00 11/10/18 08:00 11/10/18 08:00 Laboratory Results 11/10/18 08:10 11/09/18 11/10/18 11/11/18 05:59 05:59 05:59 Intake Total 1317 1428 Output Total 1400 2300 Balance -83 -872 PT 13.5 SEC (12.0-15.0) 11/06/18 17:25 INR 1.01 (0.83-1.16) 11/06/18 17:25 Physical Exam: Gen: A&O x3, appears comfortable, sitting in recliner HEENT: anicteric Skin: normal CV: reg rhythm Abdomen: soft, distended. Incisions with appropriate tenderness. Incision clean without erythema. No rebound or guarding. ICD10 Worksheet Patient Problems: Problems Problem Status Onset Cecal bascule Acute Dehydration Acute Renal insufficiency Acute Constipation Acute Failure to thrive in adult Acute <Con Hairston - Last Filed: 11/10/18 17:50> SOAP Progress Note Assessment/Plan: Assessment/Plan: 83-year-old gentleman with a previous history of p-ANCA myeloma and prostate cancer presented with obstructing mass of the right colon. Final pathology in today with metastatic had no carcinoma. Patient has a 2.1 cm tumor with 20 of 20 lymph nodes positive for adenocarcinoma. High-grade dysplasia. Will need oncology consultation which can be done as an outpatient. Tolerated diet at this point normal small bowel movement today. Anticipate discharge in the next 24-48 hours. 11/10/18 17:48 Objective: Vital Signs Temp Pulse Resp BP Pulse Ox 36.8 C 80 16 133/82 H 94 11/10/18 15:44 11/10/18 15:44 11/10/18 15:44 11/10/18 15:44 11/10/18 15:44 Laboratory Results 11/10/18 08:10 11/10/18 08:10 11/09/18 11/10/18 11/11/18 05:59 05:59 05:59 Intake Total 1317 1428 450 Output Total 1400 2300 800 Balance -83 -872 -350 PT 13.5 SEC (12.0-15.0) 11/06/18 17:25 INR 1.01 (0.83-1.16) 11/06/18 17:25
[2018-11-10] MEDS: azaTHIOprine 50 MG TAB PO SCH ×2 (09:28→20:40)
[2018-11-10] MEDS: DORZOLAMIDE 2% OPTH DROPS EACHEYE SCH ×3 (09:28→21:56)
[2018-11-10] MEDS: predniSONE 10 MG TAB PO SCH (09:28)
--- NOTE | 2018-11-10 12:41 | HOSPPROG ---
Hospitalist Progress Note Assessment/Plan: Obstruction- I discussed his case with generally surgery. Per his report patient did not have a volvulus but rather had an obstructing mass, that is likely to be cancer. Patient tolerating po at this point. Case discussed with surgery today and still awaiting pathology. -post operative care per surgery -advanced to renal diet -at some point will consult oncology to discuss treatment but per patients MDPOA and surgery would like to wait until pathology finalized. -patient had BM, and tolerating PO. 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 At or below baseline currently. Appears to take prednisone at home. Restarted home azothioprine and prednisone Multiple Myeloma- takes prednisone and azothioprine for this. Resume. Anemia- responded well to two units PRBCs. monitor. no evidence of bleed HTN- on norvasc at home. mildly hypotensive after surgery. Restart as able. Urinary retention-ryan removed today and patient able to void PPX- SCDs, Heparin per surgery Fluids- tolerating po Lytes- WNL Nutrition- Adat Cor- Full Dispo- inpatient for obstructing mass, anemia, CKD, Subjective: doing better today. little pain. tolerating pO well. had BM, voided without catheter. Objective: Vital Signs Temp Pulse Resp BP Pulse Ox 36.8 C 78 18 138/79 H 91 L 11/10/18 11:03 11/10/18 11:03 11/10/18 11:03 11/10/18 11:03 11/10/18 11:03 Laboratory Results 11/10/18 08:10 11/10/18 08:10 11/09/18 11/10/18 11/11/18 05:59 05:59 05:59 Intake Total 1317 1428 Output Total 1400 2300 Balance -83 -872 PT 13.5 SEC (12.0-15.0) 11/06/18 17:25 INR 1.01 (0.83-1.16) 11/06/18 17:25 - Physical Exam Constitutional: no apparent distress, appears nourished, not in pain Eyes: PERRL, anicteric sclera, EOMI Ears, Nose, Mouth, Throat: moist mucous membranes, hearing normal, ears appear normal, no oral mucosal ulcers Cardiovascular: regular rate and rhythym, no murmur, rub, or gallop Respiratory: no respiratory distress, no rales or rhonchi, clear to auscultation Gastrointestinal: normoactive bowel sounds, soft, non-tender abdomen, no palpable masses Genitourinary: no bladder fullness, no bladder tenderness, no renal bruits Skin: no rashes or abrasions, no fluctuance, no induration Musculoskeletal: full muscle strength, no muscle tenderness, normal joint ROM Neurologic: AAOx3, sensation intact bilaterally Psychiatric: interacting appropriately, not anxious, not encephalopathic, thought process linear Lymph, Heme, Immunologic: no cervical LAD, no supraclavicular LAD ICD10 Worksheet Patient Problems: Problems Problem Status Onset Cecal bascule Acute Dehydration Acute Renal insufficiency Acute Constipation Acute Failure to thrive in adult Acute
--- NOTE | 2018-11-10 14:36 | ASMTCMCOM ---
CM Note CM Note Notes: Met with pt and LP, PT/OT recommend SNF and they agree. They live at [facility], per Roger they will have a bed for pt at dc. LP will transport him over. DC Plan: SNF/ [facility] Date Signed: 11/10/2018 02:35 PM Electronically Signed By:Jasmyn Ang RN
[2018-11-10] MEDS: CALCIUM CARBONATE 500 MG TAB PO SCH (20:40)
[2018-11-10] MEDS: CHOLECALCIFEROL VIT D3 2,000 UNITS TAB/CAP PO SCH (20:41)
[2018-11-10] MEDS: LATANOPROST 0.005% 2.5 ML OPHT DROPS EACHEYE SCH (20:42)
[2018-11-11] MEDS: hydrALAZINE 20 MG/ML VIAL IVP PRN (01:41)
[2018-11-11] MEDS: HEPARIN 5,000 UNIT/0.5 ML INJ SC SCH (05:29)
--- NOTE | 2018-11-11 09:14 | SOAPPROG ---
SOADWOA Progress Note Assessment/Plan: Assessment/Plan: 83-year-old gentleman with a previous history of p-ANCA vasculitis, smoldering myeloma and prostate cancer presented with obstructing mass of the right colon. Final pathology in today with metastatic had no carcinoma. Patient has a 2.1 cm tumor with 20 of 20 lymph nodes positive for adenocarcinoma. High-grade dysplasia. T2N2b discussed with patient and family today. Will need oncology consultation which can be done as an outpatient. Tolerated diet at this point normal small bowel movement today. Anticipate discharge in today with follow-up in my office in 1-2 weeks. Appropriate discharge instructions were given all questions were addressed 11/11/18 09:12 Objective: Vital Signs Temp Pulse Resp BP Pulse Ox 36.6 C 70 16 148/92 H 96 11/11/18 08:00 11/11/18 08:00 11/11/18 08:00 11/11/18 08:00 11/11/18 08:00 Laboratory Results 11/11/18 05:40 11/11/18 05:40 11/10/18 11/11/18 11/12/18 05:59 05:59 05:59 Intake Total 1428 1000 Output Total 2300 2000 Balance -872 -1000 PT 13.5 SEC (12.0-15.0) 11/06/18 17:25 INR 1.01 (0.83-1.16) 11/06/18 17:25 ICD10 Worksheet Patient Problems: Problems Problem Status Onset Cecal bascule Acute Dehydration Acute Renal insufficiency Acute Constipation Acute Failure to thrive in adult Acute
[2018-11-11] MEDS: azaTHIOprine 50 MG TAB PO SCH (10:17)
[2018-11-11] MEDS: DORZOLAMIDE 2% OPTH DROPS EACHEYE SCH (10:17)
--- NOTE | 2018-11-11 11:13 | PDIAF ---
- Diagnosis Code Status: Full Code - Medication Management Discharge Medications: electronically signed and located in the Home Medication List. - Orders Services needed: Registered Nurse, Certified Carnival Worker, Physical Therapy, Occupational Therapy Diet Recommendation: no restrictions on diet Diet Texture: Regular Texture Diet Additional Instructions: Instructions following colon resection No lifting more than 25 lb for the next 2 weeks. Call with concerns regarding surgery or hospitalization For example but not limited to signs of infection temperature greater than 101.5 , inability eat, pain not controlled by medication or wound concerns. May shower Try to eat a low-fiber/residue diet for the next 2 weeks. You can use boost or Ensure to supplement protein intake. - Labs/Radiology BMP Date: 11/14/18 CBC w/diff Date: 11/14/18 - Follow Up Care Current Providers and Referrals: Con Hairston MD [Medical Doctor] - follow up in 1 week (Call to schedule appointment if not made prior to discharge) Patient,NotPresent [Unknown] - As per Instructions
[2018-11-11 11:36] VITALS: BP 136/75
--- NOTE | 2018-11-11 12:22 | ASMTLACE ---
LACE Length of stay for Answers: 4-6 days current admission Acuity / Level of Answers: Yes Care: Did the patient have an inpatient admission? Comorbidities - select Answers: Any tumor (including all that apply lymphoma or leukemia) Moderate or severe liver or renal disease Opioid dependence / Chronic pain Other Notes: HTN # of Emergency department Answers: 1-2 visits in the last 6 months Score: 19 Date Signed: 11/11/2018 12:22 PM Electronically Signed By:Ember Joyner
--- NOTE | 2018-11-11 13:57 | ASMTDCNOTE ---
Case Management Discharge Discharge Order Complete? Answers: Yes Patient to Obtain Answers: Other Notes: SNF [facility] Medications Transportation Arranged Answers: Family/Friends Transport will Pick (Date 11/11/2018 01:30 PM & Time) Faxed Final Orders Answers: Yes Agency/Facility Transfer Answers: Yes Report Printed & Faxed to Receiving Agency Family Notified Answers: Yes Notes: family in the room Discharge Comments Notes: Pt to discharge to [facility]. Admitting RN not available until 14:00, family aware. Discharge orders and transfer of care, etc faxed at [facility]. RN notified by phone of discharge. [facility] RN given number to call report to FM. No further CM needs noted at this time. CM available should needs arise. Date Signed: 11/11/2018 01:57 PM Electronically Signed By:Ember Joyner
--- NOTE | 2018-11-11 13:58 | ASDISCHSUM ---
Discharge Information Plan Status:SNF Medically Cleared to Leave:11/10/2018 Discharge Date:11/10/2018 CM D/C Disposition:Care Home Facility ADT D/C Disposition:Care Home Facility Projected Discharge Date:11/08/2018 11:00 AM Transportation at D/C:Family Discharge Delay Reason: Follow-Up Date:11/08/2018 11:00 AM Discharge Slot: Final Diagnosis:colonic mass Placement Information Referral Type:*Home Health Care Services Referral ID:[id number] Provider Name: Address 1: Phone Number: Address 2: Fax Number: City: Selection Factors: State: Referral Type:*Alf/SNF Referral ID:[id number] Provider Name:[facility] Address 1:[address] Address 2: City:[place] Selection Factors: State:[place] Patient Contact Information Contact Name:DEBBIE Relationship:Friend Address:[address] [facility] [address] [facility] [address] City:[place] Alternate Phone: [facility]/Zip Code:[place] [address] Email: Financial Information Financial Class:Medicare Primary Plan Desc:MEDICARE INPATIENT Primary Plan Number:[id number] Secondary Plan Desc:[facility] Secondary Plan Number:[id number] Assessment Information [facility] CM Progress Note CM Note CM Note Notes: Pts case discussed with SUDHEER Hung. Pt is a 83 y/o man admitted for abdominal pain. Surgery has been consulted. Pt lives at [facility] with his life partner that is a retired HEEL SHAPER. 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 Therapies have been ordered and awaiting recommendations. Needs are TBD at this time. CM to follow. Plan: TBD Date Signed: 11/07/2018 11:05 AM Electronically Signed By:PORFIRIO Lincoln LACE LACE Length of stay for Answers: 4-6 days current admission Acuity / Level of Answers: Yes Care: Did the patient have an inpatient admission? Comorbidities - select Answers: Any tumor (including all that apply lymphoma or leukemia) Moderate or severe liver or renal disease Opioid dependence / Chronic pain Other Notes: HTN # of Emergency department Answers: 1-2 visits in the last 6 months Score: 19 Date Signed: 11/11/2018 12:22 PM Electronically Signed By:Ember Joyner [facility] CM Progress Note CM Note CM Note Notes: Spoke with pt and partner Eliza in the room. They live at [facility]. Pt was admitted for abdominal pain and had a colon resection of mass which is likely cancer. PT recommending HHC and OT recommending HHC v SNF. [facility] has accepted. Pt and partner agreeable to [facility] and understand that if they feel they need more support, the SNF at may also be a possibility pending surgeon recommendation. D/C Plan: [facility] with [facility] PT/OT Date Signed: 11/08/2018 11:46 AM Electronically Signed By:Ember Joyner [facility] CM Progress Note CM Note CM Note Notes: Met with pt and LP, PT/OT recommend SNF and they agree. [place], per Roger they [place] bed [place] at [place]. LP will transport him over. DC Plan: SNF/ [facility] Date Signed: 11/10/2018 02:35 PM Electronically Signed By:Jasmyn Ang RN Case Management Discharge Plan Note Case Management Discharge Discharge Order Complete? Answers: Yes Patient to Obtain Answers: Other Notes: [facility] Medications Transportation Arranged Answers: Family/Friends Transport will Pick (Date 11/11/2018 01:30 PM & Time) Faxed Final Orders Answers: Yes Agency/Facility Transfer Answers: Yes Report Printed & Faxed to Receiving Agency Family Notified Answers: Yes Notes: family in the room Discharge Comments Notes: Pt to discharge to [facility]. Admitting RN not available until 14:00, family aware. Discharge orders and transfer of care, etc faxed at [facility]. RN notified by phone of discharge. [facility] RN given number to call report to . No further CM needs noted at this time. CM available should needs arise. Date Signed: 11/11/2018 01:57 PM Electronically Signed By:Ember Joyner Intervention Information Intervention Type:*Incorrect Registration Date of Service:11/08/2018 09:02 AM Patient Type:Observation Staff Member:Shavonne Ojeda Hours: Discipline: Severity: Comment: Intervention Type:*IM-Signed Date of Service:11/11/2018 12:26 PM Patient Type:Inpatient Staff Member:Ember Joyner Hours: Discipline:Rfid Engineer Severity: Comment:
--- NOTE | 2018-11-11 16:16 | PDDCSUM ---
Discharge Summary Discharge Summary: 83 year old male with smoldering multiple myeloma, and RPGN wiht anemia of chronic disesae, admitted with what was thought to be an intestinal volvulus. surgery was consulted who originally thought he had a volvulus and he was taken to the OR. in the OR it was found that the patient had an obstructing mass which was resected and patient had a reanastomosis at that time. The mass was found to be cancerous. Patient did develop a post op anemia requiring transfusion. He decided he wanted to follow up with oncologists at [facility]. He was discharged to [facility] in good condition to follow up with surgery, and oncology. Discharge diagnosis RPGN CKD intestinal mass found to be cancerous multiple myeloma Discharge dispo to [facility]
== END 2018-11-11 13:59 | DRG 330 ==
LOC: EDUNIT# → OBSVTOIN 20:29 → F3E 11-07 00:19
PROVIDERS: ADMIT Internal Medicine; ATTEND Internal Medicine
PROC: 0DTF0ZZ Resection of Right Large Intestine, Open Approach (ICD-10-PCS; principal; 2018-11-06 21:00)
PROC: 30233N1 Transfusion of Nonautologous Red Blood Cells into Peripheral Vein, Percutaneous Approach (ICD-10-PCS; 2018-11-09)
DX: C18.3 Malignant neoplasm of hepatic flexure (principal); C77.2 Secondary and unspecified malignant neoplasm of intra-abdominal lymph nodes; D12.2 Benign neoplasm of ascending colon; D12.3 Benign neoplasm of transverse colon; D62 Acute posthemorrhagic anemia; R33.9 Retention of urine, unspecified; N05.9 Unspecified nephritic syndrome with unspecified morphologic changes; D63.8 Anemia in other chronic diseases classified elsewhere; D63.1 Anemia in chronic kidney disease; I77.6 Arteritis, unspecified; C90.00 Multiple myeloma not having achieved remission; M06.9 Rheumatoid arthritis, unspecified; I10 Essential (primary) hypertension; Z85.46 Personal history of malignant neoplasm of prostate; Z79.52 Long term (current) use of systemic steroids; Z86.718 Personal history of other venous thrombosis and embolism
CPT/HCPCS: 82435-PO; 82565-PO; 82947-PO; 84132-PO; 84295-PO; 84520-PO; 85014-PO; 96374; 97116-GP; 97161-GP; 97166-GO; 97530-GO; 97530-GP; 97535-GO; G8987-GO-CJ; G8988-GO-CI; J0330; J0360; J0690; J1100; J1170; J1644; J2370; J2405; J2704; J2710; J3010; J7500; J7512; P9016